=== PATIENT | female | born 1955 | race Caucasian/White ===

== ENCOUNTER → 2025-05-11 | Outpatient (CLI) | payer MEDICARE, BC ==
[~2025-05-11] MED LIST: ACET-683 PO; BUPR10TASR PO; CYCL1DRO10 OU; FLUO40CA PO; GABA-1171 PO; GABA-1172 PO; LEVO137T2 PO; LOSA-527 PO; MAGN400O73 PO; OMEP40CA4 PO; OXYC-517 PO; SENN-186 PO; ZOLP-532 PO
== END ==
LOC: M PLARAD 11:04
PROVIDERS: ATTEND Internal Medicine Hematology & Oncology
DX: C50.412 Malignant neoplasm of upper-outer quadrant of left female breast (principal)
CPT/HCPCS: 78815; A9552